=== PATIENT | female | born 1965 | race Two or more races ===

== ENCOUNTER 2020-07-15 06:29 | Day surgery (SDC) | payer OTHER | END 2020-07-15 09:40 | disposition home or self-care (01) | LOC: AMB-ENDOS 06:29 → EDBD 09:15 → AMB-ENDOS 09:15 | PROVIDERS: ATTEND Surgery | DX: D12.0 Benign neoplasm of cecum (principal); D12.2 Benign neoplasm of ascending colon; Z20.828 Contact with and (suspected) exposure to other viral communicable diseases; K64.8 Other hemorrhoids ==

== ENCOUNTER 2020-11-18 13:34 | Outpatient (CLI) | payer OTHER | END 2020-11-18 15:08 | disposition home or self-care (01) | LOC: OFIC 805 13:34 | PROVIDERS: ATTEND Otolaryngology Otology & Neurotology | DX: H90.11 Conductive hearing loss, unilateral, right ear, with unrestricted hearing on the contralateral side (principal); H69.81 Other specified disorders of Eustachian tube, right ear; H72.91 Unspecified perforation of tympanic membrane, right ear ==

== ENCOUNTER 2020-11-25 14:23 | Outpatient (CLI) | payer OTHER | END 2020-11-25 15:40 | disposition home or self-care (01) | LOC: OFIC 805 14:23 | PROVIDERS: ATTEND Otolaryngology Otology & Neurotology | DX: H90.11 Conductive hearing loss, unilateral, right ear, with unrestricted hearing on the contralateral side (principal); H69.81 Other specified disorders of Eustachian tube, right ear; H65.31 Chronic mucoid otitis media, right ear; H72.91 Unspecified perforation of tympanic membrane, right ear ==

== ENCOUNTER 2021-01-02 09:56 | Day surgery (SDC) | payer OTHER ==
[~2021-01-02 09:56] MED LIST: ACTOS15 MG PO; VITAMIN D310 MCG/1 M PO
[2021-01-02] MEDS ORDERED: CILOXAN5 ML OTIC (15:26)
[2021-01-02] MEDS ORDERED: AMOXICILLIN500 MG PO (15:26)
== END 2021-01-02 18:30 | disposition home or self-care (01) ==
LOC: CIR.AMB 09:56
PROVIDERS: ATTEND Otolaryngology Otology & Neurotology
DX: H90.11 Conductive hearing loss, unilateral, right ear, with unrestricted hearing on the contralateral side (principal); H72.91 Unspecified perforation of tympanic membrane, right ear; Z20.822 Contact with and (suspected) exposure to COVID-19